=== PATIENT | female | born 1990 | race American Indian/Alaskan Native ===

== ENCOUNTER 2021-10-18 17:41 | Emergency (ER) | payer SELFPAY ==
[2021-10-18 18:50] VITALS: BP 146/80
--- NOTE | 2021-10-18 19:05 | XRay Report ---
Right foot 3 views INDICATION: Laceration FINDINGS: Diffuse soft tissue swelling within the foot. MTP joints appear intact. Calcaneal spurring is noted. No bony destructive change is seen however if there is concern for osteomyelitis MRI is rec ommended Signer Name: Jason Caceres MD Signed: 10/18/2021 7:01 PM Workstation Name: [id number]
[2021-10-18 19:06] LABS: Basophils # (Auto) 0.1 K/mm3 (0.0-0.1); Basophils % (Auto) 0.7 % (0.0-1.8); Eosinophils # (Auto) 0.3 K/mm3 (0.0-0.4); Eosinophils % (Auto) 1.9 % (0.0-4.3); Hematocrit 41.1 % (30.3-42.9); Hemoglobin 13.1 gm/dl (10.1-14.3); Lymphocytes # (Auto) 4.5 K/mm3 (1.2-5.4); Lymphocytes % (Auto) 32.7 % (13.4-35.0); Mean Corpuscular HGB Conc 32 % (30-34); Mean Corpuscular Volume 93 fl (79-97); Monocytes # (Auto) 0.8 K/mm3 (0.0-0.8); Monocytes % (Auto) 5.9 % (0.0-7.3); Platelet Count 278 K/mm3 (140-440); Red Blood Count 4.43 M/mm3 (3.65-5.03); Red Cell Distribution Width 14.5 % (13.2-15.2)
[2021-10-18 19:27] LABS: Blood Urea Nitrogen 6 mg/dL (7-17); Calcium 9.2 mg/dL (8.4-10.2); Hemolysis Index 5
[2021-10-18 19:28] LABS: BUN/Creatinine Ratio 9
--- NOTE | 2021-10-18 20:38 | Emergency Department Report ---
ED General Adult HPI - General Chief complaint: Wound/Laceration Stated complaint: INFECTED WOUND Time Seen by Provider: 10/18/21 18:41 Source: patient Mode of arrival: Ambulatory Limitations: No Limitations - History of Present Illness Initial comments: 30-year-old diabetic female Aline Aguero complaining of a laceration to the foot about a week ago which has been present for over a week and treated with an antibiotic however she is using peroxide every day along with a unknown ointment to the skin and noticed some some redness following chronic take utilization. States that she still having some dull pain to the area but reports no fever, chills, sweats and wants to have the wound evaluated Severity scale (0 -10): 4 Consistency: constant Improves with: none Worsens with: none - Related Data Previous Rx's Medication Instructions Recorded Last Taken Type Chlorhexidine Gluconate [Hibiclens] 10 ml TP BID #240 liquid 10/18/21 Unknown Rx Clindamycin [Clindamycin CAP] 150 mg PO Q8HR #30 capsule 10/18/21 Unknown Rx Allergies Allergy/AdvReac Type Severity Reaction Status Date / Time No Known Allergies Allergy Unverified 10/18/21 18:44 ED Review of Systems ROS: Stated complaint: INFECTED WOUND Other details as noted in HPI Comment: All other systems reviewed and negative ED Past Medical Hx - Past Medical History Previous Medical History?: Yes Hx Hypertension: Yes Hx Diabetes: Yes ([place]) Hx Psychiatric Treatment: Yes (anxiety, depression) Hx Asthma: Yes Additional medical history: Polycystic ovary disease, Chin with stitches - Surgical History Past Surgical History?: No - Medications Home Medications: Home Medications Medication Instructions Recorded Confirmed Last Taken Type Chlorhexidine Gluconate [Hibiclens] 10 ml TP BID #240 liquid 10/18/21 Unknown Rx Clindamycin [Clindamycin CAP] 150 mg PO Q8HR #30 capsule 10/18/21 Unknown Rx ED Physical Exam - General Limitations: No Limitations General appearance: alert, in no apparent distress - Head Head exam: Present: atraumatic, normocephalic - Eye Eye exam: Present: normal appearance, PERRL, EOMI - ENT ENT exam: Present: mucous membranes moist - Neck Neck exam: Present: normal inspection - Respiratory Respiratory exam: Present: normal lung sounds bilaterally. Absent: respiratory distress - Cardiovascular Cardiovascular Exam: Present: regular rate, normal rhythm. Absent: systolic murmur, diastolic murmur, rubs, gallop - GI/Abdominal GI/Abdominal exam: Present: soft, normal bowel sounds - Extremities Exam Extremities exam: Present: normal inspection, tenderness - Expanded Lower Extremity Exam Right Ankle exam: Present: tenderness, ecchymosis, erythema (Healing foot wound with serous drainage and local rash macular rash with few blisters noted surrounding the wound. Pulses 2+ no lymphangitis is noted. Capillary refills are brisk) Neuro vascular tendon exam: Present: no vascular compromise 1 - Is wound to this region - Back Exam Back exam: Present: normal inspection. Absent: CVA tenderness (R), CVA tenderness (L) - Neurological Exam Neurological exam: Present: alert, oriented X3, CN II-XII intact, normal gait - Psychiatric Psychiatric exam: Present: normal affect, normal mood. Absent: depressed, anxious, flat affect, manic, suicidal ideation - Skin Skin exam: Present: warm, dry, intact, normal color. Absent: rash ED Course Vital Signs 10/18/21 18:48 Temperature 99.6 F Pulse Rate 96 H Respiratory 20 Rate Blood Pressure 146/80 [Right] O2 Sat by Pulse 99 Oximetry ED Medical Decision Making - Lab Data Result diagrams: 10/18/21 18:45 10/18/21 18:45 Critical care attestation.: If time is entered above; I have spent that time in minutes in the direct care of this critically ill patient, excluding procedure time. ED Disposition Clinical Impression: Wound, open, foot Disposition: HOME / SELF CARE / HOMELESS Is pt being admited?: No Does the pt Need Aspirin: No Condition: Stable Instructions: Wound Infection, Mechanical Wound Debridement, Care After, Wound Care, Adult, Mechanical Wound Debridement Prescriptions: Clindamycin [Clindamycin CAP] 150 mg PO Q8HR #30 capsule Chlorhexidine Gluconate [Hibiclens] 10 ml TP BID #240 liquid Referrals: [facility] [Outside] - 3-5 Days [facility] [Provider Group] - 3-5 Days
== END 2021-10-18 21:00 | disposition home or self-care (01) ==
LOC: ED 17:41
DX: S91.311D Laceration without foreign body, right foot, subsequent encounter (principal); X58.XXXD Exposure to other specified factors, subsequent encounter; I10 Essential (primary) hypertension; E11.9 Type 2 diabetes mellitus without complications; J45.909 Unspecified asthma, uncomplicated; F41.9 Anxiety disorder, unspecified
CPT/HCPCS: 36415; 80048; 82140; 85025; 87040; 99283